=== PATIENT | female | born 1985 | race Caucasian/White ===

== ENCOUNTER 2020-11-12 00:48 | Emergency (ER) | payer BC ==
[~2020-11-12] VITALS: Ht 162.6 cm; Wt 59.0 kg
[2020-11-12 00:52] VITALS: BP 146/87
[2020-11-12] MEDS ORDERED: ACETAMINOPHEN 325MG TABLET PO STA (01:35)
[2020-11-12 01:57] LABS: BASOPHILS % 0.6 % (0.0-2.0); EOSINOPHILS % 4.8 % (0.0-5.0); HEMATOCRIT. 31.8 % (36.0-48.0); LYMPHOCYTES % 24.9 % (20.0-50.0); MEAN CORPUSCULAR HEMOGLOBIN 31.6 pg (28.0-32.0); MEAN CORPUSCULAR VOLUME 91.3 fL (81.0-99.0); MEAN PLATELET VOLUME 10.6 fl (7.4-10.4); NEUTROPHILS % 60.7 % (40.0-76.0); PLATELET 214 x1000/uL (130-400); RED BLOOD CELL COUNT 3.48 mill/uL (4.2-5.4)
[2020-11-12 02:02] LABS: CHLORIDE 109 mEq/L (98-107)
[2020-11-12 02:31] LABS: B-HCG QUANTITATIVE 65168 mIU/mL (<3)
[2020-11-12 04:29] LABS: CLARITY URINE CLEAR (CLEAR); COLOR URINE YELLOW (YELLOW); KETONES URINE TRACE (NEGATIVE); LEUKOCYTE ESTERASE URINE NEGATIVE (NEGATIVE); NITRITE URINE NEGATIVE (NEGATIVE); OCCULT BLOOD URINE NEGATIVE (NEGATIVE); PROTEIN URINE NEGATIVE (NEGATIVE)
[2020-11-12] MEDS ORDERED: ACET-2708 MT (04:40)
== END 2020-11-12 04:46 | disposition home or self-care (01) ==
LOC: ER 00:48
DX: O20.0 Threatened abortion (principal); Z3A.01 Less than 8 weeks gestation of pregnancy
CPT/HCPCS: 36415; 76830; 76856; 80053; 81003; 84702; 85025; 86850; 86900; 99284